=== PATIENT | female | born 1970 | race African-American/Black ===

== ENCOUNTER 2018-02-20 13:42 | Emergency (ER) | payer MEDICAID, OTHER ==
[~2018-02-20] VITALS: Ht 154.9 cm; Wt 90.7 kg
[2018-02-20 14:00] VITALS: BP 164/95
== END 2018-02-20 15:19 | disposition home or self-care (01) ==
LOC: ER 13:50
DX: I10 Essential (primary) hypertension (principal); Z76.0 Encounter for issue of repeat prescription